=== PATIENT | male | born 1945 | race Asian ===

== ENCOUNTER → 2016-10-01 | Outpatient (CLI) | payer BC, MEDICARE ==
[~2016-10-01] VITALS: Ht 167.6 cm; Wt 71.0 kg
[~2016-10-01] MED LIST: ASCO500 PO; ASPI-1093 PO; BUDE10.2 IH; CARV6 PO; CLON.1 PO; DILT300C53 PO; LOSA50TA37 PO; METF850T2 PO; RIVA20TA PO; SIMV-260 PO; TIOT185 IH; VITA400T9 PO; VITAD1000 PO
[2016-10-01 12:58] VITALS: BP 115/65
== END | disposition home or self-care (01) ==
LOC: SRCNTR 12:35
PROVIDERS: ATTEND Internal Medicine Critical Care Medicine
DX: I10 Essential (primary) hypertension (principal); J44.9 Chronic obstructive pulmonary disease, unspecified; E78.2 Mixed hyperlipidemia; G47.33 Obstructive sleep apnea (adult) (pediatric)
CPT/HCPCS: G0463

== ENCOUNTER → 2016-10-03 | Outpatient (CLI) | payer BC, MEDICARE | END | disposition home or self-care (01) | LOC: RADPV 09:52 | PROVIDERS: ATTEND Internal Medicine Critical Care Medicine | DX: J44.9 Chronic obstructive pulmonary disease, unspecified (principal) | CPT/HCPCS: 71020 ==

== ENCOUNTER → 2016-11-13 | Outpatient (CLI) | payer BC, MEDICARE ==
[~2016-11-13] VITALS: Ht 165.1 cm; Wt 73.5 kg
[2016-11-13 12:54] VITALS: BP 137/73
== END | disposition home or self-care (01) ==
LOC: SRCNTR 12:53
PROVIDERS: ATTEND Internal Medicine Critical Care Medicine
DX: J44.9 Chronic obstructive pulmonary disease, unspecified (principal); I10 Essential (primary) hypertension; E78.2 Mixed hyperlipidemia; G47.33 Obstructive sleep apnea (adult) (pediatric); J18.9 Pneumonia, unspecified organism; R22.2 Localized swelling, mass and lump, trunk; I25.10 Atherosclerotic heart disease of native coronary artery without angina pectoris; I77.819 Aortic ectasia, unspecified site; I51.7 Cardiomegaly; I70.0 Atherosclerosis of aorta; J42 Unspecified chronic bronchitis
CPT/HCPCS: G0463

== ENCOUNTER → 2016-12-31 | Outpatient (CLI) | payer BC, MEDICARE ==
[~2016-12-31] VITALS: Ht 165.1 cm; Wt 76.6 kg
[2016-12-31 11:35] VITALS: BP 152/81
== END | disposition home or self-care (01) ==
LOC: SRCNTR 11:30
PROVIDERS: ATTEND Internal Medicine Critical Care Medicine
DX: I10 Essential (primary) hypertension (principal); J18.9 Pneumonia, unspecified organism; J44.1 Chronic obstructive pulmonary disease with (acute) exacerbation; E78.2 Mixed hyperlipidemia; G47.33 Obstructive sleep apnea (adult) (pediatric); Z87.891 Personal history of nicotine dependence
CPT/HCPCS: G0463

== ENCOUNTER → 2017-01-01 | Outpatient (CLI) | payer BC ==
[2017-01-01 10:50] LABS: BASOPHILS # (AUTO) 0.05 K/uL (0.00-0.20); BASOPHILS % (AUTO) 0.6 % (0.0-2.0); EOSINOPHILS # (AUTO) 0.73 K/uL (0.00-0.70); EOSINOPHILS % (AUTO) 9.37 % (1.0-6.0); HEMATOCRIT 41.6 % (41-53); HEMOGLOBIN 13.3 g/dL (13.5-17.5); LYMPHOCYTES # (AUTO) 1.8 K/uL (1.0-4.8); LYMPHOCYTES % (AUTO) 22.9 % (22.0-44.0); MEAN CORPUSCULAR HEMOGLOBIN 28.9 pg (26.0-34.0); MEAN CORPUSCULAR HGB CONC 31.9 G/dL (31.0-37.0); MEAN CORPUSCULAR VOLUME 91 fL (80-100); MONOCYTES # (AUTO) 0.7 K/uL (0.1-1.0); MONOCYTES % (AUTO) 8.6 % (2.0-9.0); NEUTROPHILS # (AUTO) 4.6 K/uL (1.8-7.7); NEUTROPHILS % (AUTO) 58.5 % (40.0-70.0); PLATELET COUNT (AUTO) 179 K/uL (150-450); RED BLOOD CELL COUNT(AUTO) 4.58 MIL/uL (4.50-5.90); RED CELL DISTRIBUTION WIDTH 14.7 % (11.5-14.5); WHITE BLOOD COUNT (AUTO) 7.8 K/uL (4.5-11.0)
[2017-01-01 10:51] LABS: INR 1.3 (0.9-1.1)
== END | disposition home or self-care (01) ==
LOC: LABPV 08:39
PROVIDERS: ATTEND Internal Medicine Critical Care Medicine
DX: R91.8 Other nonspecific abnormal finding of lung field (principal); J44.9 Chronic obstructive pulmonary disease, unspecified; E78.5 Hyperlipidemia, unspecified; J45.909 Unspecified asthma, uncomplicated; I10 Essential (primary) hypertension; Z79.01 Long term (current) use of anticoagulants

== ENCOUNTER → 2017-01-16 | Outpatient (CLI) | payer BC, MEDICARE ==
[2017-01-16 12:18] LABS: BASOPHILS % (AUTO) 0.4 % (0.0-2.0); EOSINOPHILS % (AUTO) 9.8 % (1.0-6.0); HEMATOCRIT 40.3 % (41-53); HEMOGLOBIN 13.4 g/dL (13.5-17.5); LYMPHOCYTES # (AUTO) 1.8 K/uL (1.0-4.8); LYMPHOCYTES % (AUTO) 23.9 % (22.0-44.0); MEAN CORPUSCULAR HEMOGLOBIN 29.8 pg (26.0-34.0); MEAN CORPUSCULAR HGB CONC 33.3 G/dL (31.0-37.0); MEAN CORPUSCULAR VOLUME 89 fL (80-100); MONOCYTES # (AUTO) 0.6 K/uL (0.1-1.0); MONOCYTES % (AUTO) 7.9 % (2.0-9.0); NEUTROPHILS # (AUTO) 4.4 K/uL (1.8-7.7); PLATELET COUNT (AUTO) 159 K/uL (150-450); RED BLOOD CELL COUNT(AUTO) 4.51 MIL/uL (4.50-5.90); RED CELL DISTRIBUTION WIDTH 14.9 % (11.5-14.5); WHITE BLOOD COUNT (AUTO) 7.6 K/uL (4.5-11.0)
[2017-01-16 12:37] LABS: HEMOGLOBIN A1C 6.2 % (4.5-6.2)
[2017-01-16 12:39] LABS: ALANINE AMINOTRANSFERASE 26 U/L (12-78); ALBUMIN 3.8 g/dL (3.4-5.0); ANION GAP 7 mmol/L (8-16); ASPARTATE AMINOTRANSFERASE 20 U/L (15-37); BILIRUBIN,TOTAL 0.3 mg/dL (0.1-1.0); CALCIUM, TOTAL 9.2 mg/dL (8.8-10.5); CARBON DIOXIDE 31 mmol/L (22-29); CHLORIDE 105 mmol/L (98-107); CHOL/HDL RATIO 3.4 (4.2-7.3); CREATININE 1.06 mg/dL (0.60-1.30); GLOMERULAR FILTR. RATE CALC > 60 mL/min (>60); POTASSIUM 4.1 mmol/L (3.5-5.1); SODIUM SERUM 143 mmol/L (136-145); TOTAL PROTEIN, SERUM 7.4 g/dL (6.4-8.2); UREA NITROGEN, BLOOD 19 mg/dL (7-18)
== END | disposition home or self-care (01) ==
LOC: LABPV 10:22
PROVIDERS: ATTEND Internal Medicine Cardiovascular Disease
DX: I11.0 Hypertensive heart disease with heart failure (principal); I50.9 Heart failure, unspecified; E11.8 Type 2 diabetes mellitus with unspecified complications; E55.9 Vitamin D deficiency, unspecified
CPT/HCPCS: 82306; 83036; 83735; 84439; 84443

== ENCOUNTER 2017-01-31 08:07 | Day surgery (SDC) | payer BC, MEDICARE ==
[~2017-01-31] VITALS: Ht 165.1 cm; Wt 76.4 kg
[~2017-01-31 08:07] MED LIST changes: -ASCO500 PO; -ASPI-1093 PO; +SITA50 PO; +SODIUM CHLORIDE 0.9% 1,000 ML IV ONE; -VITAD1000 PO
[2017-01-31] MEDS ORDERED: SODIUM CHLORIDE 0.9% 1,000 ML IV ONE ×2 (08:15→08:30)
[2017-01-31 08:44] LABS: PROTHROMBIN TIME 10.1 SEC (9.4-11.6)
[2017-01-31 09:04] LABS: ANION GAP 11 mmol/L (8-16); CALCIUM, TOTAL 10.4 mg/dL (8.8-10.5); CARBON DIOXIDE 29 mmol/L (22-29); CHLORIDE 104 mmol/L (98-107); CREATININE 1.06 mg/dL (0.60-1.30); GLOMERULAR FILTR. RATE CALC > 60 mL/min (>60); POTASSIUM 3.7 mmol/L (3.5-5.1); SODIUM SERUM 144 mmol/L (136-145); UREA NITROGEN, BLOOD 19 mg/dL (7-18)
[2017-01-31] MEDS ORDERED: FentaNYL CITRATE-PF 100 MCG/2 ML VIAL ONE (09:31)
[2017-01-31] MEDS ORDERED: LIDOCAINE HCL/PF 1% 30 ML VIAL ONE (09:32)
[2017-01-31] MEDS ORDERED: MIDAZOLAM HCL 2 MG/2 ML VIAL ONE (09:32)
[2017-01-31] MEDS ORDERED: FentaNYL CITRATE-PF 100 MCG/2 ML VIAL IVP ONE (10:13)
[2017-01-31] MEDS ORDERED: MIDAZOLAM HCL 2 MG/2 ML VIAL IVP ONE (10:13)
[2017-01-31] MEDS ORDERED: GELATIN SPONGE,ABSORBABLE 12-7 MM TP ONE (10:24)
[2017-01-31] MEDS ORDERED: ACETAMINOPHEN 500 MG TABLET PO ONE (13:00)
== END 2017-01-31 14:20 | disposition home or self-care (01) ==
LOC: SDS 08:07
PROVIDERS: ATTEND Internal Medicine Critical Care Medicine
DX: R91.8 Other nonspecific abnormal finding of lung field (principal); J43.9 Emphysema, unspecified; E78.00 Pure hypercholesterolemia, unspecified; E11.9 Type 2 diabetes mellitus without complications; Z79.01 Long term (current) use of anticoagulants; Z98.42 Cataract extraction status, left eye
CPT/HCPCS: 32405; 36415; 71010; 77012; 80048; 85610; 87015; 87070; 87101; 87176; 87205; 88305; 88342; 93005; J2250; J3010; J3490; J7030; 88341

== ENCOUNTER → 2017-02-06 | Outpatient (CLI) | payer BC, MEDICARE ==
[~2017-02-06] VITALS: Ht 165.1 cm; Wt 77.0 kg
[~2017-02-06] MED LIST changes: +ASPI-556 PO; +ATOR20TA86 PO; -SODIUM CHLORIDE 0.9% 1,000 ML IV ONE
[2017-02-06 14:49] VITALS: BP 141/69
== END | disposition home or self-care (01) ==
LOC: SRCNTR 14:34
PROVIDERS: ATTEND Internal Medicine Critical Care Medicine
DX: G47.33 Obstructive sleep apnea (adult) (pediatric) (principal); C34.91 Malignant neoplasm of unspecified part of right bronchus or lung; E78.2 Mixed hyperlipidemia; I11.9 Hypertensive heart disease without heart failure; I25.10 Atherosclerotic heart disease of native coronary artery without angina pectoris; J44.1 Chronic obstructive pulmonary disease with (acute) exacerbation; Z79.01 Long term (current) use of anticoagulants
CPT/HCPCS: G0463

== ENCOUNTER 2017-02-12 21:32 | Emergency (ER) | payer BC, MEDICARE ==
[~2017-02-12] VITALS: Ht 167.6 cm; Wt 77.3 kg
[~2017-02-12 21:32] MED LIST changes: -ASPI-556 PO; -ATOR20TA86 PO
[2017-02-12] MEDS ORDERED: ATOR20TA86 PO (21:54)
[2017-02-12] MEDS ORDERED: ASPI-556 PO (21:54)
[2017-02-12 21:57] LABS: GLUCOSE,POINT OF CARE 151 MG/DL (70-110)
[2017-02-12] MEDS ORDERED: CloNIDine HCL 0.1 MG TABLET PO ONE (22:15)
[2017-02-12 23:27] VITALS: BP 142/81
== END 2017-02-12 23:46 | disposition home or self-care (01) ==
LOC: EMS 21:33
DX: Z76.0 Encounter for issue of repeat prescription (principal); I10 Essential (primary) hypertension; E11.9 Type 2 diabetes mellitus without complications; E78.00 Pure hypercholesterolemia, unspecified
CPT/HCPCS: 82962; 99283

== ENCOUNTER → 2017-04-11 | Outpatient (CLI) | payer BC, MEDICARE ==
[~2017-04-11] VITALS: Ht 165.1 cm; Wt 71.0 kg
[~2017-04-11] MED LIST changes: +ASPI-556 PO; +ATOR20TA86 PO; +CLON-570 PO; -CLON.1 PO; -SIMV-260 PO
[2017-04-11 12:16] VITALS: BP 111/72
== END | disposition home or self-care (01) ==
LOC: SRCNTR 11:19
PROVIDERS: ATTEND Internal Medicine Critical Care Medicine
DX: I10 Essential (primary) hypertension (principal); J44.1 Chronic obstructive pulmonary disease with (acute) exacerbation; E78.2 Mixed hyperlipidemia; G47.33 Obstructive sleep apnea (adult) (pediatric); C34.91 Malignant neoplasm of unspecified part of right bronchus or lung
CPT/HCPCS: G0463